=== PATIENT | female | born 1935 | race Caucasian/White ===

== ENCOUNTER → 2018-04-04 | Day surgery (SDC) | payer MEDICARE ==
[2018-03-31 11:34] LABS: BASOPHILS # (AUTO) 0.1 (0.0-0.1); BASOPHILS % 1.3 % (0.0-1.0); EOSINOPHILS # (AUTO) 0.1 (0.0-0.4); EOSINOPHILS % 1.5 % (0.0-6.0); HEMATOCRIT 42.2 % (34.2-44.1); HEMOGLOBIN 13.6 g/dL (12.0-16.0); LYMPHOCYTES # (AUTO) 2.1 (1.0-3.2); LYMPHOCYTES % 24.3 % (18.0-39.1); MEAN CORPUSCULAR HEMOGLOBIN 31.4 pg (28-32); MEAN CORPUSCULAR HGB CONC 32.2 g/dL (31-35); MEAN CORPUSCULAR VOLUME 97.5 fL (81-99); MONOCYTES # (AUTO) 0.6 (0.2-0.8); MONOCYTES % 7.2 % (4.4-11.3); NEUTROPHILS # (AUTO) 5.5 (2.1-6.9); NEUTROPHILS % 65.2 % (38.7-80.0); PLATELET COUNT 268 x10e3/uL (140-360); RED BLOOD COUNT 4.33 x10e6/uL (3.6-5.1); RED CELL DISTRIBUTION WIDTH 12.6 % (11.7-14.4)
[2018-03-31 11:52] LABS: ANION GAP 14.5 mmol/L (8-16); BLOOD UREA NITROGEN 16 mg/dL (7-26); BUN/CREATININE RATIO 21 (6-25); CALCIUM 10.3 mg/dL (8.4-10.2); CARBON DIOXIDE 28 mmol/L (22-29); CHLORIDE 101 mmol/L (98-107); CREATININE, SERUM 0.76 mg/dL (0.57-1.11); EST GLOMERULAR FILTRATION RATE > 60 ML/MIN (60-); GLUCOSE 106 mg/dL (74-118); POTASSIUM 4.5 mmol/L (3.5-5.1); SODIUM 139 mmol/L (136-145)
--- NOTE | 2018-03-31 11:59 | Diagnostic Imaging Report ---
EXAMINATION: PA and lateral views of the chest. COMPARISON: None CLINICAL HISTORY: Preoperative study for carpal tunnel procedure DISCUSSION: Lungs are well-inflated. No focal airspace consolidation, pleural effusion, or pneumothorax. Tortuous thoracic aorta with atherosclerotic calcification. Normal heart size. No pulmonary edema. No acute osseous abnormalities. Lumbar spine fusion hardware is partially visualized on the lateral radiograph IMPRESSION: No acute cardiopulmonary abnormalities. Signed by: Dr. Jonathan Mcdaniel M.D. on 03/31/2018 11:56 AM
[~2018-04-04] MED LIST: ASPIRIN EC81 MG PO; CEFAZOLIN SOD 1 GM/D5W 50ML 50 ML IV ONE; DEXAMETHASONE SOD PHOS INJ 4 MG/ML VIAL ONE; FENTANYL CITRATE/PF 100MCG/2 ML INJ ONE; FISH OIL PO; KETOROLAC TROMETHAMINE 30 MG/ML VIAL ONE; LABETALOL HCL200 MG PO; LIDOCAINE HCL 2% LOCAL INJ 5 ML SDV VIAL INJ ONE; LISINOPRIL-HCT1 EAC1 PO; LISINOPRIL-HCT1 EACH PO; ONDANSETRON HCL INJ 2 MG/ML VIAL ONE; PRILOSEC OTC20 MG PO; PROBIOTIC & AC1 EACH PO; PROPOFOL IV EMULSION 10 MG/ML 20 ML VIAL ONE; VITAMIN D PO
--- OUTSIDE RECORDS SUMMARY | 2018-04-04 07:57 | XMS REPORT | Summary of Care ---
Author Author [facility] [place] Organization [facility] [place] Address Unknown Phone Unavailable Encounter HQ Fedentr_alan([facility]) [id number] Date(s): 05/11/16 - 05/11/16 [facility] [place] [address] [place] [phone] Discharge Disposition: Home or Self Care Attending Physician: Marshal Haynes MD Vital Signs No data available for this section Problem List No data available for this section Allergies, Adverse Reactions, Alerts No data available for this section Medications No data available for this section Results No data available for this section Immunizations No data available for this section Procedures No data available for this section Social History No data available for this section Assessment and Plan No data available for this section
--- OUTSIDE RECORDS SUMMARY | 2018-04-04 07:57 | XMS REPORT | Continuity of Care Document ---
Author Author [facility] Interface Address Unknown Phone Unavailable Problems Problem Status Onset Date Classification Date Reported Comments Source Encounter for screening mammogram for malignant neoplasm of breast 05/20/2017 08/24/2017 [facility] [place] Z12.31 - ENCNTR SCREEN MAMMOGRAM FOR MA Active 04/09/2016 [facility] [place] R92.8 - OTH ABN AND INCONCLUSIVE FINDI Active 04/15/2015 [facility] [place] ROUTNIE Active 11/20/2013 [facility] Medications Medication Details Route Status Patient Instructions Ordering Provider Order Date Source Allergies, Adverse Reactions, Alerts Substance Category Reaction Severity Reaction type Status Date Reported Comments Source Immunizations Immunization Date Given Site Status Last Updated Comments Source Results Order Name Results Value Reference Range Date Interpretation Comments Source Breast Mammo Scrn BALDO incl CAD MA Breast Mammo Scrn BALDO incl CAD MD BILATERAL DIGITAL SCREENING MAMMOGRAM WITH CAD: 05/18/2017 CLINICAL: Z12.31 Encounter For Screening Mammogram For Malignant Neoplasm Of Breast/Z12.31 Encounter For Screening Mammogram For Malignant Neoplasm Of Breast. Current study was evaluated with a Computer Aided Detection (CAD) system. COMPARISON:Comparison is made to exams dated: 05/11/2016 mammogram, 05/01/2015 mammogram, 10/31/2014 mammogram - [facility], 01/03/2014 mammogram, 12/30/2012 mammogram, and 12/25/2011 mammogram - [facility]. TECHNIQUE: Mammographic views were obtained using digital acquisition. Current study was also evaluated with a Computer Aided Detection (CAD) system. FINDINGS: There are scattered fibroglandular densities in both breasts. There is stable focal asymmetries in the upper central right breast, accounting for differences in positioning and technique. There are benign appearing calcifications in both breasts. There also is a biopsy clip in the right breast. No significant masses, calcifications, or other findings are seen in either breast. There has been no significant interval change. IMPRESSION: BENIGN RECOMMENDATION:There is no mammographic evidence of malignancy. A 1 year screening mammogram is recommended.(05/19/2018) This exam was interpreted at [id number] at [facility]. Professional services are provided by the [facility] Division of Diagnostic Imaging. Theresa Calle M.D., ms/penrad:05/18/2017 14:54:33 Senior Fund Accountant(s): Wendy Malone RT(R)(M), [facility] letter sent: BI-RADS 1/2 Mammogram BI-RADS: 2 Benign 05/18/2017 - - Read by: Theresa Calle MD Dictated Date/time: 05/18/17 14:54 Electronically Signed by: Theresa Calle MD 05/18/17 14:54 FINAL [facility] [place] Digital Mammo Screening Baldo MA Digital Mammo Screening Baldo MA - DIGITAL MAMMO SCREENING BALDO MA BILATERAL DIGITAL SCREENING MAMMOGRAM WITH CAD: 05/11/2016 CLINICAL: Routine. Current study was evaluated with a Computer Aided Detection (CAD) system. Comparison is made to exams dated: 05/01/2015 mammogram, 10/31/2014 mammogram - [facility], 01/03/2014 mammogram, 12/30/2012 mammogram, 12/25/2011 mammogram and 10/11/2009 mammogram - [facility]. The tissue of both breasts is heterogeneously dense, which could obscure detection of small masses. There is stable focal asymmetries in the upper central right breast, accounting for differences in positioning and technique. There are benign appearing calcifications in both breasts. There also is a biopsy clip in the right breast. No significant masses, calcifications, or other findings are seen in either breast. There has been no significant interval change. IMPRESSION: BENIGN There is no mammographic evidence of malignancy. A 1 year screening mammogram is recommended. Professional services are provided by the [facility] Division of Diagnostic Imaging. Jer John M.D., jp/fadiarad:05/13/2016 07:34:36 Senior Fund Accountant: Kira Ferguson RT(R)(M), [facility] This exam was dictated and interpreted by [address] [place], [place] [address]sandip [place] [address]. letter sent: Normal exam Mammogram BI-RADS: 2 Benign 05/11/2016 - - Read by: Jer John MD Dictated Date/time: 05/13/16 07:34 Electronically Signed by: Jer John MD 05/13/16 07:34 FINAL REPORT MARY Gifford Abdomen/Pelvis w IV contrast CT Abdomen/Pelvis w IV contrast CT CT ABDOMEN AND PELVIS WITH CONTRAST HISTORY: 79-year-old female with right upper quadrant pain. PROCEDURE: CT scan of the abdomen and pelvis with contrast was done. Creatinine level was 0.6 mg/dl and eGFR was 87 ml/min. Dilute oral and IV contrast, 100 cc Omnipaque 300 used. Postcontrast and delayed series were obtained with coronal and sagittal reformats. The CT dose was 1023mGy/cm. Comparison: Gallbladder HIDA scan 08/04/2007 Abdomen findings: The bases of both lung appear normal. The liver has normal morphology and homogeneous attenuation. The gallbladder is absent and bile ducts are unremarkable. The pancreas has normal attenuation and dimensions. The spleen has normal volume and expected enhancement. The spleen oblique dimension is 9.2 cm. The stomach, duodenum, small bowel, appendiceal region and colon are normal. Kidneys in contrast and delayed phase appear normal, no hydronephrosis or lithiasis seen. The right adrenal has a superiorly and 2.0 x 1.1 cm low-attenuation adenoma, likely an incidental finding. The left adrenal is normal. The abdominal aorta and iliac vessels appear normal in caliber. There is no retroperitoneal adenopathy. Osseous structures show that the lower thoracic spine is unremarkable. Grade 1 retrolisthesis of L1 on L2 by 5 mm noted. Grade 1 anterolisthesis of L2 on L3 by 7 mm noted. There is vacuum phenomenon at L2-L3 disc. Status post L3-L4-L5 posterior laminectomies with decompressive surgeries and transpedicular fixations. The lower lumbar spine vertebral bodies appear adequate alignment. Pelvic findings: The urinary bladder is normal. Uterus and adnexa are unremarkable. A left inguinal 2.2 x 2.3 cm prominent lymph nodes noted. The right inguinal region is normal. IMPRESSION: No acute abnormality of the abdomen or pelvis. Status post cholecystectomy. Right adrenal 2.0 cm low-attenuation nodule, likely an incidental adenoma. Left inguinal 2.3 cm prominent lymph node. Status post lower lumbar decompressive surgery. 08/26/2015 - - Read by: Danilo Garcia MD Dictated Date/time: 08/26/15 10:21 Electronically Signed by: Danilo Garcia 08/26/15 11:10 FINAL REPORT MARY [facility] Digital Mammo DX Uni MA Digital Mammo DX Uni MA - DIGITAL MAMMO DX UNI MA/R UNILATERAL RIGHT DIGITAL DIAGNOSTIC MAMMOGRAM WITH CAD: 05/01/2015 CLINICAL: R92.8 Other Abnormal And Inconclusive Findings On Diagnostic Imaging Of Breast. Current study was evaluated with a Computer Aided Detection (CAD) system. Comparison is made to exams dated: 10/31/2014 mammogram - [facility], 01/03/2014 mammogram, 12/30/2012 mammogram, 12/25/2011 mammogram, 11/29/2010 mammogram and 10/11/2009 mammogram - [facility]. The tissue of the right breast is heterogeneously dense, which could obscure detection of small masses. The previously described focal asymmetry is stable since at least 2006. This is a benign finding. There are benign scattered calcifications in the right breast. There also is a biopsy clip in the right breast. No significant masses, calcifications, or other findings are seen in the breast. There has been no significant interval change. IMPRESSION: BENIGN There is no mammographic evidence of malignancy. Stable focal asymmetry dating back to at least 2006 is benign. A 1 year screening mammogram is recommended. These results were discussed with the patient. Shashi Plata M.D. cm/:05/01/2015 08:39:35 Senior Fund Accountant: Wendy Malone, [facility] This exam was dictated and interpreted by [id number] for MARY Gifford. letter sent: Normal exam Mammogram BI-RADS: 2 Benign 05/01/2015 - - Read by: Adebayo Villela MD Dictated Date/time: 05/01/15 08:39 Electronically Signed by: Adebayo Villela MD 05/01/15 08:39 FINAL REPORT [facility] [place] Breast Limited Uni US Breast Limited Uni US - DIGITAL MAMMO DX BALDO MA - BREAST LIMITED UNI US/R BILATERAL DIGITAL DIAGNOSTIC MAMMOGRAM WITH CAD AND TARGETED RIGHT ULTRASOUND: 10/31/2014 CLINICAL: Right breast pain. Current study was evaluated with a Computer Aided Detection (CAD) system. Comparison is made to exams dated: 07/15/2006 mammogram, 12/30/2012 mammogram, 12/25/2011 mammogram, 11/29/2010 mammogram, 10/11/2009 mammogram and 10/05/2008 mammogram - [facility]. The tissue of both breasts is heterogeneously dense, which could obscure detection of small masses. There is a 1.9 cm mass in the right breast at 12 o'clock middle depth. The margins are obscured or irregular. This is stable mammographically since 2006; no adverse interval change. There is a biopsy clip 4.5 cm lateral to this lesion. This abnormality was not seen on targeted ultrasound. No other significant masses, calcifications, or other findings are seen in either breast on the mammogram or targeted ultrasound. No suspicious axillary lymph nodes. IMPRESSION: INCOMPLETE: NEEDS ADDITIONAL IMAGING EVALUATION, TARGETED ULTRASOUND INCOMPLETE: NEEDS ADDITIONAL IMAGING EVALUATION The 1.9 cm irregular mass in the right breast is indeterminate. Since this has been unchanged since 2006, it is favored to represent fibroglandular breast tissue. As such, an MRI is recommended. If there is no suspicious MRI correlate, then this can be deemed benign. If an MRI is declined or deferred, then the patient should return for 6 month follow up. Patient should follow up with physician regarding breast pain. Findings and recommendations were discussed with the patient and her together in person at the time of the exam. Jovani John M.D. srp/:10/31/2014 16:41:54 Senior Fund Accountant: Kira Ferguson RT(R)(M), [facility] This exam was dictated and interpreted by [id number] for MARY Gifford. letter sent: Additional Imaging Mammogram BI-RADS: 0 Indeterminate Ultrasound BI-RADS: 0 Indeterminate 10/31/2014 - - Read by: Jovani John MD Dictated Date/time: 10/31/14 16:41 Electronically Signed by: Jovani John MD 10/31/14 16:41 FINAL REPORT MARY [facility] Digital Mammo DX Baldo MA Digital Mammo DX Baldo MA - DIGITAL MAMMO DX BALDO MA - BREAST LIMITED UNI US/R BILATERAL DIGITAL DIAGNOSTIC MAMMOGRAM WITH CAD AND TARGETED RIGHT ULTRASOUND: 10/31/2014 CLINICAL: Right breast pain. Current study was evaluated with a Computer Aided Detection (CAD) system. Comparison is made to exams dated: 07/15/2006 mammogram, 12/30/2012 mammogram, 12/25/2011 mammogram, 11/29/2010 mammogram, 10/11/2009 mammogram and 10/05/2008 mammogram - [facility]. The tissue of both breasts is heterogeneously dense, which could obscure detection of small masses. There is a 1.9 cm mass in the right breast at 12 o'clock middle depth. The margins are obscured or irregular. This is stable mammographically since 2006; no adverse interval change. There is a biopsy clip 4.5 cm lateral to this lesion. This abnormality was not seen on targeted ultrasound. No other significant masses, calcifications, or other findings are seen in either breast on the mammogram or targeted ultrasound. No suspicious axillary lymph nodes. IMPRESSION: INCOMPLETE: NEEDS ADDITIONAL IMAGING EVALUATION, TARGETED ULTRASOUND INCOMPLETE: NEEDS ADDITIONAL IMAGING EVALUATION The 1.9 cm irregular mass in the right breast is indeterminate. Since this has been unchanged since 2006, it is favored to represent fibroglandular breast tissue. As such, an MRI is recommended. If there is no suspicious MRI correlate, then this can be deemed benign. If an MRI is declined or deferred, then the patient should return for 6 month follow up. Patient should follow up with physician regarding breast pain. Findings and recommendations were discussed with the patient and her together in person at the time of the exam. Jovani John M.D. srp/:10/31/2014 16:41:54 Senior Fund Accountant: Kira CLARK(Lesley)(M), [facility] This exam was dictated and interpreted by [id number] for MARY Gifford. letter sent: Additional Imaging Mammogram BI-RADS: 0 Indeterminate Ultrasound BI-RADS: 0 Indeterminate 10/31/2014 - - Read by: Jovani John MD Dictated Date/time: 10/31/14 16:41 Electronically Signed by: Jovani John MD 10/31/14 16:41 FINAL REPORT MARY [facility] Digital Mammo Screening Baldo MA Digital Mammo Screening Baldo MA - DIGITAL MAMMO SCREENING BALDO MA BILATERAL DIGITAL SCREENING MAMMOGRAM WITH CAD: 01/03/2014 CLINICAL: Routine. Current study was evaluated with a Computer Aided Detection (CAD) system. Comparison is made to exams dated: 12/30/2012 mammogram, 12/25/2011 mammogram, 11/29/2010 mammogram, 10/11/2009 mammogram, 10/05/2008 mammogram and 04/10/2008 mammogram - [facility]. There are scattered fibroglandular densities in both breasts. There are benign vascular calcifications and calcifications in both breasts. There also is a benign density and a lymph node in the right breast. Additionally there is a biopsy clip in the right breast. No significant masses, calcifications, or other findings are seen in either breast. There has been no significant interval change. IMPRESSION: BENIGN There is no mammographic evidence of malignancy. A screening mammogram in one year is recommended. Latosha liu/pelon:01/04/2014 08:58:16 Senior Fund Accountant: Sharla Correa, [facility] This exam was dictated and interpreted by [id number] for [facility]. letter sent: Normal exam Mammogram BI-RADS: 2 Benign 01/03/2014 - - Read by: Latosha Lewis MD Dictated Date/time: 01/04/14 08:58 Electronically Signed by: Latosha Lewis MD 01/04/14 08:58 FINAL REPORT [facility] Vital Signs Vital Sign Value Date Comments Source Encounters Location Location Details Encounter Type Encounter Number Reason For Visit Attending Provider ADM Date DC Date Status Source [facility] Outpatient [id number] Marshal [place] 01/03/2014 01/04/2014 [facility] [place] [facility] [id number] Marshal Dallas 10/31/2014 11/01/2014 [facility] [place] [facility] [place] Outpt Di[facility] [id number] Marshal Dallas 05/01/2015 05/02/2015 [facility] [place] [facility] [place] Out[facility] [id number] Marshal Dallas 08/26/2015 08/27/2015 [facility] [place] [facility] [place] Outpt Di[facility] Services [id number] Marshal Dallas 05/11/2016 05/12/2016 [facility] [place] [facility] [place] Outpt Di[facility] Services [id number] Marshal Haynes 05/18/2017 05/19/2017 FABIOLA Gifford Procedures Procedure Code Date Perfomer Comments Source
--- OUTSIDE RECORDS SUMMARY | 2018-04-04 07:57 | XMS REPORT | Summary of Care ---
Author Author [facility] [place] Organization [facility] [place] Address Unknown Phone Unavailable Encounter Fedentr_alan([facility]) [id number] Date(s): 08/26/15 - 08/26/15 [facility] [place] [address] [place] [address] [phone] Discharge Disposition: Home Attending Physician: Marshal Haynes MD Vital Signs [...]
--- OUTSIDE RECORDS SUMMARY | 2018-04-04 07:57 | XMS REPORT | Summary of Care ---
Author Author [facility] [place] Organization [facility] [place] Address Unknown Phone Unavailable Encounter HQ Encntr_alias(FIN) [id number] Date(s): 05/18/17 - 05/18/17 [facility] [place] [address] [place] [phone] Encounter Diagnosis Encounter for screening mammogram for malignant neoplasm of breast (Final) - 05/19/17 Discharge Disposition: Home or Self Care Attending [...]
--- OUTSIDE RECORDS SUMMARY | 2018-04-04 07:57 | XMS REPORT ---
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 Allergies, Adverse Reactions, Alerts This patient has no known allergies or adverse reactions. Medications This patient has no known medications. Results Test Description Test Time Test Comments Text Results Atomic Results Result Comments CHEST 2 VIEWS 2018-03-31 11:55:00 [place] [address] Patient Name: DOUG BERGER MR #: [id number] : 1935 Age/Sex: 82/F Req #: [id number] [facility] Physician: Ordered by: TONI SARABIA MD Report #: [id number] Location: OR Room/Bed: Procedure: [id number] DX/CHEST 2 VIEWS Exam Date: 03/31/18 Exam Time: 1120 REPORT STATUS: Signed EXAMINATION: PA and lateral views of the chest. KAYLEY RISON: None CLINICAL HISTORY: Preoperative study for carpal tunnel procedure DISCUSSION: Lungs are well-inflated. No focal airspace consolidation, pleural effusion, or pneumothorax. Tortuous thoracic aorta with atherosclerotic calcification. Normal heart size. No pulmonary edema. No acute osseous abnormalities. Lumbar spine fusion hardware is partially visualized on the lateral radiograph IMPRESSION: No acute cardiopulmonary abnormalities. Signed by: Dr. Toni Hartley M.D. on 03/31/2018 11:56 AM Dictated By: TONI HARTLEY MD El ectronically Signed By: TONI HARTLEY MD on 03/31/18 115 Transcribed By: CHAVA on 03/31/18 1151 COPY TO: TONI SARABIA MD
--- OUTSIDE RECORDS SUMMARY | 2018-04-04 07:57 | XMS REPORT | Summary of Care ---
Author Author [facility] [place] Organization [facility] [place] Address Unknown Phone Unavailable Encounter Fedentr_alan([facility]) [id number] Date(s): 10/31/14 - 10/31/14 [facility] [place] [address] [place] [id number] [phone] Discharge Disposition: Home Attending Physician: Marshal Haynes [...]
--- OUTSIDE RECORDS SUMMARY | 2018-04-04 07:57 | XMS REPORT | Summary of Care ---
Author Organization Unknown Address Unknown Phone Unavailable Encounter HQ Encntr_alan([facility]) [id number] Date(s): 01/03/14 - 01/03/14 [facility] [address] Discharge Disposition: Home Physician Attending: Marshal Haynes MD Physician_Referring: Marshal Haynes MD Reason for Visit ROUTNIE Problem List No data available for this section Allergies, Adverse Reactions, Alerts No data available for this section Medications No data available for this section Medications Administered During Your Visit No data available for this section Immunizations No data available for this section
--- OUTSIDE RECORDS SUMMARY | 2018-04-04 07:57 | XMS REPORT | Summary of Care ---
Author Author [facility] [place] Organization [facility] [place] Address Unknown Phone Unavailable Encounter HQ Fedentr_alan([facility]) [id number] Date(s): 05/01/15 - 05/01/15 [facility] [place] [address] [place] [address] [phone] Discharge Disposition: Home Attending Physician: Marshal Haynes [...]
[2018-04-04 11:40] VITALS: BP 160/60
--- NOTE | 2018-04-04 13:14 | Operative Report ---
DATE OF PROCEDURE: April 04, 2018 CONTRACTS DIRECTOR: Elvin Platt PA-C The patient was brought to the operating room for induction of anesthesia. Throughout this case, my PA's assistance was necessary for retraction of soft tissue and positioning of the extremity. This allows for efficient and technically successful execution of the operation and is considered medically necessary. PREOPERATIVE DIAGNOSIS: Bilateral carpal tunnel syndrome. POSTOPERATIVE DIAGNOSIS: Bilateral carpal tunnel syndrome. PROCEDURE: Bilateral endoscopic carpal tunnel release. INDICATIONS: The patient is an 82-year-old lady who has clinic signs and symptoms consistent with bilateral carpal tunnel syndrome. She has failed conservative management and would like to proceed with surgical releases. The risks and benefits of an endoscopic versus open carpal tunnel release have been explained. She states she understands and wishes to proceed. DESCRIPTION OF PROCEDURE: The patient was brought to the operating room and placed under general anesthetic. Both upper extremities were prepped and draped in a sterile manner. A preoperative time out was performed. Initial attention was directed towards the right upper extremity. The extremity was exsanguinated, and a proximal tourniquet was inflated to 250 mmHg. An incision was made over the flexion crease of the right wrist. The palmaris longus was retracted to the radial side of the wound. The flexor retinaculum was elevated and incised. An elevator was used to tease the tenosynovium off of the undersurface of the transverse carpal ligament. Dilators were placed, and the hook of the hamate was palpated. The MicroAire endoscope was placed into the carpal tunnel. The undersurface of the ligament was cleanly visualized without evidence of soft-tissue interposition. The knife was deployed, and the ligament was cut from distal to proximal. Full-thickness cut was noted. The proximal retinaculum was incised under direct visualization with a pair of blunt Metzenbaum scissors. The incision was closed with 2 interrupted nylon stitches. A sterile bandage was applied. The same procedure was then performed on the left wrist. She was transported to the recovery room in stable condition. There was no blood loss and need/sponge counts were correct. Job#: [id number] EV CINDY
== END | disposition home or self-care (01) ==
LOC: OR 07:54
PROVIDERS: ATTEND Specialist
DX: G56.03 Carpal tunnel syndrome, bilateral upper limbs (principal); M18.0 Bilateral primary osteoarthritis of first carpometacarpal joints; K58.9 Irritable bowel syndrome, unspecified; Z01.810 Encounter for preprocedural cardiovascular examination; Z01.812 Encounter for preprocedural laboratory examination; Z01.818 Encounter for other preprocedural examination; Z98.42 Cataract extraction status, left eye; Z98.41 Cataract extraction status, right eye; Z98.1 Arthrodesis status; Z87.891 Personal history of nicotine dependence; Z88.2 Allergy status to sulfonamides
CPT/HCPCS: 29848; 36415; 71046; 80048; 85025; 93005; J0690; J1100; J1885; J2001; J2405; J2704

== ENCOUNTER → 2019-02-21 | Outpatient (CLI) | payer MEDICARE ==
[~2019-02-21] MED LIST changes: -CEFAZOLIN SOD 1 GM/D5W 50ML 50 ML IV ONE; -DEXAMETHASONE SOD PHOS INJ 4 MG/ML VIAL ONE; -FENTANYL CITRATE/PF 100MCG/2 ML INJ ONE; -KETOROLAC TROMETHAMINE 30 MG/ML VIAL ONE; -LIDOCAINE HCL 2% LOCAL INJ 5 ML SDV VIAL INJ ONE; -ONDANSETRON HCL INJ 2 MG/ML VIAL ONE; -PROPOFOL IV EMULSION 10 MG/ML 20 ML VIAL ONE; +REGADENOSON 0.4 MG/5 ML SYR IV ONE
== END ==
LOC: NM 08:00
PROVIDERS: ATTEND Internal Medicine
DX: R00.2 Palpitations (principal); I49.3 Ventricular premature depolarization
CPT/HCPCS: 78452; 93017; 93306; A9502